=== PATIENT | male | born 1990 ===

== ENCOUNTER 2022-01-26 08:44 | Emergency (ER) | payer SELFPAY | END 2022-01-26 09:04 | disposition left against medical advice (07) | LOC: ER 08:44 | DX: R41.82 Altered mental status, unspecified (principal); Z53.21 Procedure and treatment not carried out due to patient leaving prior to being seen by health care provider ==

== ENCOUNTER 2022-03-10 15:26 | Emergency (ER) | payer SELFPAY ==
[2022-03-10] MEDS ORDERED: HYDR25TA PO (19:09)
[2022-03-10] MEDS ORDERED: HALO5TAB PO (19:09)
== END 2022-03-10 15:42 | disposition left against medical advice (07) ==
LOC: ER 15:26
DX: R56.9 Unspecified convulsions (principal); Z53.21 Procedure and treatment not carried out due to patient leaving prior to being seen by health care provider

== ENCOUNTER 2022-04-01 11:49 | Emergency (ER) | payer SELFPAY ==
[~2022-04-01] VITALS: Ht 190.5 cm; Wt 80.0 kg
[~2022-04-01 11:49] MED LIST: HALO5TAB PO; HYDR25TA PO
[2022-04-01 11:57] VITALS: BP 155/76
[2022-04-01] MEDS: clonazePAM 0.5 MG TABLET PO ONE (12:13)
[2022-04-01 12:22] LABS: CALCIUM 8.6 mg/dL (8.5-10.1); CREATININE 0.9 mg/dL (0.7-1.3); GFR 99.8; POTASSIUM 3.9 mmol/L (3.5-5.1)
--- NOTE | 2022-04-01 12:27 | PHYS DOC ---
Past Medical History Past Medical History: Bipolar Additional Past Medical Histor: HYPOXIC BRAIN INJURY Past Surgical History: No Surgical History Smoking Status: Current Every Day Smoker Alcohol Use: None General Adult EDM: Chief Complaint: MUSCLE SPASM/CRAMP HPI: HPI: Patient is a 31 year old male with a history of a TBI and schizophrenia who presents to the emergency department today with complaints of muscle spasms. Patient states that he takes Klonopin for seizures. He states that he has been out of his Klonopin for the past 2 months. He states that when he runs out of Klonopin he gets muscle spasms particularly in his jaws. He states that he has had daily muscle spasms for the past 2 months and decided to present here to the emergency department today for evaluation. He denies any other injury or complaint at this time. He states that he drank a few beers today which may pollack ve made his muscle spasms worse. Review of Systems: Review of Systems: Constitutional: Denies fever or chills. [] Eyes: Denies change in visual acuity. [] HENT: Denies nasal congestion or sore throat. [] Respiratory: Denies cough or shortness of breath. [] Cardiovascular: Denies chest pain or edema. [] GI: Denies abdominal pain, nausea, vomiting, bloody stools or diarrhea. [] : Denies dysuria. [] Musculoskeletal: Denies back pain or joint pain. [] Integument: Denies rash. [] Neurologic: Denies headache, focal weakness or sensory changes. [] Endocrine: Denies polyuria or polydipsia. [] Lymphatic: Denies swollen glands. [] Psychiatric: Denies depression or anxiety. [] Heart Score: C/O Chest Pain: No Current Medications: Current Medications Medications (Trade) Dose Ordered Sig/Magda Start Time Stop Time Status Last Admin Dose Admin Clonazepam (KlonoPIN) 2 mg 1X ONCE 04/01/22 12:00 04/01/22 12:11 DC 04/01/22 12:13 2 MG Allergies: Allergies: Allergies Coded Allergies Type Severity Reaction Last Updated Verified No Known Drug Allergies 03/10/22 No Physical Exam: PE: Constitutional: Well developed, well nourished, no acute distress, non-toxic appearance. [] HENT: Normocephalic, atraumatic, bilateral external ears normal, oropharynx moist, no oral exudates, nose normal. [] Eyes: PERRLA, EOMI, conjunctiva normal, no discharge. [] Neck: Normal range of motion, no tenderness, supple, no stridor. [] Cardiovascular:Heart rate regular rhythm, no murmur [] Lungs & Thorax: Bilateral breath sounds clear to auscultation [] Abdomen: Bowel sounds normal, soft, no tenderness, no masses, no pulsatile masses. [] Skin: Warm, dry, no erythema, no rash. [] Back: No tenderness, no CVA tenderness. [] Extremities: No tenderness, no cyanosis, no clubbing, ROM intact, no edema. [] Neurologic: Alert and oriented X 3, normal motor function, normal sensory function, no focal deficits noted. [] Psychologic: flat affect Current Patient Data: Labs: Laboratory Tests Test 04/01/22 12:05 Sodium Level 138 mmol/L (136-145) Potassium Level 3.9 mmol/L (3.5-5.1) Chloride Level 106 mmol/L (98-107) Carbon Dioxide Level 22 mmol/L (21-32) Anion Gap 10 (6-14) Blood Urea Nitrogen 12 mg/dL (8-26) Creatinine 0.9 mg/dL (0.7-1.3) Estimated GFR (Cockcroft-Gault) 99.8 Glucose Level 113 mg/dL (70-99) H Calcium Level 8.6 mg/dL (8.5-10.1) Laboratory Tests 04/01/22 12:05 Vital Signs: Vital Signs Date Time Temp Pulse Resp B/P (MAP) Pulse Ox O2 Delivery O2 Flow Rate FiO2 04/01/22 11:57 98.2 102 18 155/76 (102) 100 Room Air 98.2 EKG: EKG: [] Radiology/Procedures: Radiology/Procedures: [] Course & Med Decision Making: Course & Med Decision Making Patient evaluated at the bedside. BMP was obtained and showed no electrolyte abnormalities. Patient was given 2 mg of Klonopin at the bedside. On reassessment patient states he feels better and is ready to be discharged home. We will discharge him home and have him follow-up with his PCP. Jairo Disclaimer: Jairo Disclaimer: This electronic medical record was generated, in whole or in part, using a voice recognition dictation system. Departure Departure Impression: Primary Impression: Muscle spasm Disposition: HOME / SELF CARE / HOMELESS Condition: IMPROVED Referrals: NO PCP (PCP) Patient Instructions: EVELIO Walsh MD April 01, 2022 12:27
== END 2022-04-01 12:34 | disposition home or self-care (01) ==
LOC: ER 11:49
DX: M62.838 Other muscle spasm (principal); F20.9 Schizophrenia, unspecified; F31.9 Bipolar disorder, unspecified; F17.200 Nicotine dependence, unspecified, uncomplicated
CPT/HCPCS: 36415; 80048; 99283

== ENCOUNTER 2022-04-07 17:33 | Emergency (ER) | payer SELFPAY ==
[~2022-04-07] VITALS: Ht 190.5 cm; Wt 93.1 kg
[2022-04-07] MEDS ORDERED: clonazePAM 0.5 MG TABLET PO PRN (18:15)
[2022-04-07 18:20] LABS: INFLUENZA A PATIENT NEGATIVE (NEGATIVE); INFLUENZA B PATIENT NEGATIVE (NEGATIVE)
[2022-04-07 18:29] LABS: BASO # 0.1 x10^3/uL (0.0-0.2); BASO % 1 % (0-3); EOS # 0.2 x10^3/uL (0.0-0.7); EOS % 1 % (0-3); HEMATOCRIT 38.2 % (39.0-53.0); HEMOGLOBIN 12.8 g/dL (13.0-17.5); LYMPH # 2.7 x10^3/uL (1.0-4.8); LYMPH % 17 % (24-48); MEAN CORPUSCULAR HEMOGLOBIN 30 pg (25-35); MEAN CORPUSCULAR HGB CONC 34 g/dL (31-37); MEAN CORPUSCULAR VOLUME 89 fL (79-100); MONO # 1.1 x10^3/uL (0.0-1.1); MONO % 7 % (0-9); NEUT # 12.2 x10^3/uL (1.8-7.7); NEUT % 75 % (31-73); PLATELET COUNT 259 x10^3/uL (140-400); RED BLOOD COUNT 4.28 x10^6/uL (4.30-5.70); RED CELL DISTRIBUTION WIDTH 14.4 % (11.5-14.5); WHITE BLOOD COUNT 16.3 x10^3/uL (4.0-11.0)
[2022-04-07 18:38] LABS: CALCIUM 8.4 mg/dL (8.5-10.1); CREATININE 1.1 mg/dL (0.7-1.3); GFR 79.1; POTASSIUM 3.7 mmol/L (3.5-5.1)
[2022-04-07 18:43] LABS: ALBUMIN 3.5 g/dL (3.4-5.0); ALBUMIN/GLOBULIN RATIO 1.1 (1.0-1.7); TOTAL BILIRUBIN 0.2 mg/dL (0.2-1.0); TOTAL PROTEIN 6.8 g/dL (6.4-8.2)
[2022-04-07 19:07] LABS: BARBITURATES NEG (NEG); BENZODIAZEPINES NEG (NEG); CANNABINOIDS POS (NEG); COCAINE NEG (NEG); METHADONE NEG (NEG); OPIATES NEG (NEG); PHENCYCLIDINE NEG (NEG)
[2022-04-07 19:08] LABS: AMPHETAMINE/METHAMPHETAMINE NEG (NEG)
[2022-04-07 19:13] LABS: AMORPHOUS SEDIMENT,UR PRESENT /HPF; BACTERIA,URINE 0 /HPF (0-FEW); RBC,URINE 0 /HPF (0-2); WBC,URINE 0 /HPF (0-4)
--- NOTE | 2022-04-07 19:49 | PHYS DOC ---
Past Medical History Past Medical History: Bipolar Additional Past Medical Histor: HYPOXIC BRAIN INJURY Past Surgical History: No Surgical History Smoking Status: Current Every Day Smoker Additional Information: 0.5 PPD Alcohol Use: Occasionally General Adult EDM: Chief Complaint: SUICDAL IDEATION HPI: HPI: Patient is a 31-year-old male who presents to the emergency department complaining of feeling suicidal for the past month, patient reports he gets this way when he is out of his Klonopin, patient reports he just recently moved here from [place] 2 months ago and has not been able to obtain a prescription for his Klonopin, patient reports he cannot sit down rest he does not feel like he has his self. Patient reports he feels like cutting himself in the neck with a knife. Patient denies homicidal ideation. Patient does report a past medical history of schizophrenia, reports he takes 2 mg of Klonopin 3 times a day, 10 mg of Haldol 3 times a day, and 25 mg of hydroxyzine twice a day, patient reports he is only out of his Klonopin. Patient denies recent fever or chills, denies chest pains, dizziness, headaches, syncopal or near syncopal episodes patient denies other physical complaints or physical concerns, patient denies being a cigarette smoker, denies drinking alcohol, denies illicit drug use. Review of Systems: Review of Systems: 14 body systems of review of systems have been reviewed. See HPI for pertinent positives and negative responses, otherwise all other systems are negative, nonpertinent or noncontributory. Constitutional: Negative except as outlined in HPI above. Skin: Negative except as outlined in HPI above. Eyes: Negative except as outlined in HPI above. HENT: Negative except as outlined in HPI above. Respiratory: Negative except as outlined in HPI above. Cardiovascular: Negative except as outlined in HPI above. GI: Negative except as outlined in HPI above. : Negative except as outlined in HPI above. Musculoskeletal: Negative except as outlined in HPI above. Integument: Negative except as outlined in HPI above. Neurologic: Negative except as outlined in HPI above. Endocrine: Negative except as outlined in HPI above. Lymphatic: Negative except as outlined in HPI above. Psychiatric: Negative except as outlined in HPI above. Heart Score: C/O Chest Pain: No Risk Factors: Risk Factors: DM, Current or recent (<one month) smoker, HTN, HLP, family history of CAD, obesity. Risk Scores: Score 0 - 3: 2.5% MACE over next 6 weeks - Discharge Home Score 4 - 6: 20.3% MACE over next 6 weeks - Admit for Clinical Observation Score 7 - 10: 72.7% MACE over next 6 weeks - Early Invasive Strategies Current Medications: Current Medications Medications (Trade) Dose Ordered Sig/Magda Start Time Stop Time Status Last Admin Dose Admin Clonazepam (KlonoPIN) 2 mg PRN Q6HRS PRN 04/07/22 18:15 04/07/22 18:36 2 MG Lorazepam (Ativan Inj) 1 mg 1X ONCE 04/07/22 18:15 04/07/22 18:18 DC 04/07/22 18:36 1 MG Allergies: Allergies: Allergies Coded Allergies Type Severity Reaction Last Updated Verified No Known Drug Allergies 03/10/22 No Physical Exam: PE: Constitutional: Well developed, well nourished, no acute distress, non-toxic appearance. 31-year-old male in no apparent distress. HENT: Normocephalic, atraumatic. Eyes: Conjunctiva normal, no discharge. Neck: Normal range of motion, no stridor. Cardiovascular: No cyanosis appreciated, distal cap refill less than 2 seconds. Lungs & Thorax: Patient is in no respiratory distress, no audible adventitious lung sounds appreciated. Abdomen: Nontender, no abnormalities noted. Skin: Warm, dry, no erythema, no rash. Back: No tenderness, no deformities. Extremities: No tenderness, no cyanosis, no clubbing, ROM intact, no edema. Neurologic: Alert and oriented X 3, normal motor function, normal sensory function, no focal deficits noted. Psychologic: Affect normal, judgement abnormal, mood normal. Patient does complain of suicidal ideation with plan to cut self at neck with a knife, denies homicidal ideation. Current Patient Data: Labs: Laboratory Tests Test 04/07/22 17:55 04/07/22 18:15 04/07/22 18:51 Influenza Type A Antigen Negative (NEGATIVE) Influenza Type B Antigen Negative (NEGATIVE) SARS-CoV-2 Antigen (Rapid) Negative (NEGATIVE) White Blood Count 16.3 x10^3/uL (4.0-11.0) H Red Blood Count 4.28 x10^6/uL (4.30-5.70) L Hemoglobin 12.8 g/dL (13.0-17.5) L Hematocrit 38.2 % (39.0-53.0) L Mean Corpuscular Volume 89 fL (79-100) Mean Corpuscular Hemoglobin 30 pg (25-35) Mean Corpuscular Hemoglobin Concent 34 g/dL (31-37) Red Cell Distribution Width 14.4 % (11.5-14.5) Platelet Count 259 x10^3/uL (140-400) Neutrophils (%) (Auto) 75 % (31-73) H Lymphocytes (%) (Auto) 17 % (24-48) L Monocytes (%) (Auto) 7 % (0-9) Eosinophils (%) (Auto) 1 % (0-3) Basophils (%) (Auto) 1 % (0-3) Neutrophils # (Auto) 12.2 x10^3/uL (1.8-7.7) H Lymphocytes # (Auto) 2.7 x10^3/uL (1.0-4.8) Monocytes # (Auto) 1.1 x10^3/uL (0.0-1.1) Eosinophils # (Auto) 0.2 x10^3/uL (0.0-0.7) Basophils # (Auto) 0.1 x10^3/uL (0.0-0.2) Sodium Level 143 mmol/L (136-145) Potassium Level 3.7 mmol/L (3.5-5.1) Chloride Level 108 mmol/L (98-107) H Carbon Dioxide Level 25 mmol/L (21-32) Anion Gap 10 (6-14) Blood Urea Nitrogen 13 mg/dL (8-26) Creatinine 1.1 mg/dL (0.7-1.3) Estimated GFR (Cockcroft-Gault) 79.1 BUN/Creatinine Ratio 12 (6-20) Glucose Level 125 mg/dL (70-99) H Calcium Level 8.4 mg/dL (8.5-10.1) L Total Bilirubin 0.2 mg/dL (0.2-1.0) Aspartate Amino Transferase (AST) 10 U/L (15-37) L Alanine Aminotransferase (ALT) 10 U/L (16-63) L Alkaline Phosphatase 71 U/L (46-116) Total Protein 6.8 g/dL (6.4-8.2) Albumin 3.5 g/dL (3.4-5.0) Albumin/Globulin Ratio 1.1 (1.0-1.7) Ethyl Alcohol Level < 10 mg/dL (0-10) Urine Collection Type Unknown Urine Color (Auto) Yellow Urine Turbidity Hazy Urine pH (Auto) 6.5 (<5.0-8.0) Urine Specific [place] 1.025 (1.000-1.030) Urine Protein (Auto) Negative mg/dL (Negative) Urine Glucose (Auto)(UA) Negative mg/dL (Negative) Urine Ketones (Auto) Negative mg/dL (Negative) Urine Blood (Auto) Negative (Negative) Urine Nitrite Negative (Negative) Urine Bilirubin (Auto) Negative (Negative) Urine Urobilinogen (Auto) Normal mg/dL (Normal) Urine Leukocyte Esterase (Auto) Negative (Negative) Urine RBC 0 /HPF (0-2) Urine WBC 0 /HPF (0-4) Urine Amorphous Sediment Present /HPF Urine Bacteria 0 /HPF (0-FEW) Urine Mucus Slight /LPF Urine Opiates Screen Neg (NEG) Urine Methadone Screen Neg (NEG) Urine Barbiturates Neg (NEG) Urine Phencyclidine Screen Neg (NEG) Urine Amphetamine/Methamphetamine Neg (NEG) Urine Benzodiazepines Screen Neg (NEG) Urine Cocaine Screen Neg (NEG) Urine Cannabinoids Screen Pos (NEG) Urine Ethyl Alcohol Neg (NEG) Laboratory Tests 04/07/22 18:15 Laboratory Tests 04/07/22 18:15 Vital Signs: Vital Signs Date Time Temp Pulse Resp B/P (MAP) Pulse Ox O2 Delivery O2 Flow Rate FiO2 04/07/22 19:08 104 20 128/77 (94) 98 Room Air 04/07/22 17:35 98.5 98.5 EKG: EKG: [] Radiology/Procedures: Radiology/Procedures: [] Course & Med Decision Making: Course & Med Decision Making Pertinent Labs and Imaging studies reviewed. (See chart for details) 31-year-old male, vital signs reviewed, presents emergency department concerning suicidal ideation. Physical examination is unremarkable, patient's affect is normal, patient is asking for a milligram of Ativan intravenously and Klonopin to help him with his symptoms. Related to patient's suicidal ideation, nursing staff started suicide precautions immediately, made room suicide safe, started one-to-one constant observation, security was called to inspect patient for dangerous weapons, ordered suicide precautions, one-to-one sitter, CBC, CMP, urine drug screen, alcohol level, consulted PAT, rapid flu and COVID testing, COVID for PCR for area psychiatric facility placement, will give 1 mg IV Ativan, p.o. clonazepam 2 mg. PAT steam fitter supervisor Roxie at bedside to examine patient and evaluate psychiatric status. Patient was evaluated by a qualified mental health professional who reviewed any appropriate supporting documentation and previous available medical records and feels this patient does not meet criteria for admission to a mental health facility. Please refer to the qualified health professionals documentation for details regarding this decision. Will discharge patient with appropriate mental health resources and follow-up, PAT steam fitter supervisor Roxie formulated a safety plan, discharged home with patient's sister, will prescribe a short regimen of Klonopin, PAT member Roxie has contacted patient's mental health facility provider [facility] to discuss Klonopin regimen. Patient has remained calm during his ER stay, the one-to-one sitter has been DC'd. Patient currently awaiting cab voucher transport to home. Upon reevaluation of patient, patient reports he is no longer suicidal and wishes to go home. Dragon Disclaimer: [employer] Disclaimer: This electronic medical record was generated, in whole or in part, using a voice recognition dictation system. Departure Departure Impression: Primary Impression: History of suicidal ideation Disposition: 01 HOME / SELF CARE / HOMELESS Condition: GOOD Referrals: NO PCP (PCP) Additional Instructions: You were seen today in the emergency department for suicidal thoughts, you were evaluated by a healthcare professional, you do have formulated a safety plan for home, please follow the safety plan, return to the emergency department for any returning suicidal or homicidal thoughts. As we discussed I am writing you a short regimen of your Klonopin, please get a full prescription from your mental health facility [facility]. Thank you for visiting our Emergency Department. It was a pleasure taking care of you today in the emergency department and we appreciate you trusting us with your care. If any additional problems come up don't hesitate to return to visit us. Please follow up with your primary care provider so they can plan additional care if needed and know about the problem that you had. If symptoms worsen come back to the Emergency Department. Any concerning symptoms that start such as chest pain, shortness of air, weakness or numbness on one side of the body, running high fevers or any other concerning symptoms r eturn to the ER. Scripts Clonazepam (CLONAZEPAM) 2 Mg Tablet 1 TAB PO TID for Mental status, #6 TAB 0 Refills Prov: MARVIN WOLF APRN 04/07/22 MARVIN WOLF APRN April 07, 2022 19:49
[2022-04-07 19:50] VITALS: BP 106/56
[2022-04-07] MEDS ORDERED: CLON2TAB9 PO (20:04)
--- NOTE | 2022-04-10 11:04 | EKG ---
[facility] [address] [place] [address] Test Date: 2022-04-07 Test Time: 18:00:36 Pat Name: ROSIE FORBES Department: Room: Gender: M Packing Attendant: : 1990 Requested By: MARVIN WOLF Order Number: [id number] Reading MD: Raúl Barnett MD Measurements Intervals [place] Rate: 100 P: -91 MT: 174 QRS: 70 QRSD: 96 T: 64 QT: 336 QTc: 436 Interpretive Statements SINUS RHYTHM Electronically Signed On 04-10-2022 11:06:53 CDT by Raúl Barnett MD
== END 2022-04-07 20:25 | disposition home or self-care (01) ==
LOC: ER 17:33
DX: R45.851 Suicidal ideations (principal); Z20.822 Contact with and (suspected) exposure to COVID-19; F31.9 Bipolar disorder, unspecified; F17.200 Nicotine dependence, unspecified, uncomplicated
CPT/HCPCS: 80053; 80307; 81001; 85025; 87428; 93005; 96374; 99285; C9803; G0480; J2060; U0003; 99284-25